=== PATIENT | male | born 1955 | race African-American/Black ===

== ENCOUNTER 2020-07-25 20:57 | Inpatient (IN) ==
[2020-07-25 21:27] LABS: Basophils % 0.1 % (0.0-0.8); Hematocrit 39.3 VOL% (42.0-52.0); Hemoglobin 13.8 GM/DL (14.0-18.0); Immature Granulocytes % 0.7 %; Immature Granulocytes Absolute 0.11 #; Lymphocytes # 0.7 10*3/uL (1.4-4.0); Lymphocytes % 3.9 % (21.2-54.2); Mean Corpuscular HGB Conc 35.1 GM/DL (32-36); Mean Corpuscular Volume 89.9 FL (87-102); Mean Platelet Volume 9.8 FL (9.6-12.0); Monocytes % 4.2 % (1.7-12.7); Neutrophils % 91.1 % (38.7-73.9); Platelet Count 240 T/CUMM (130-400); Red Blood Count 4.37 MC/CUMM (3.8-5.5); Red Cell Distribution Width 11.7 % (9.3-17.3); White Blood Count 16.7 T/CUMM (4-12)
[2020-07-25] MEDS ORDERED: DEXAMETHASONE 4 MG/1 ML VIAL IV STA (21:42)
[2020-07-25] MEDS ORDERED: AZITHROMYCIN INJ 500 MG in SODIUM CHLORIDE 0.9% 250 ML IV STA (21:42)
[2020-07-25 21:51] LABS: Band Neutrophils 1 % (0-10); Lymphocytes 5 % (20-55); Segmented Neutrophils 90 % (50-85); Total Cells Counted 100
[2020-07-25 21:52] LABS: Platelet Estimate Adequate
[2020-07-25 21:56] LABS: Albumin 2.9 G/DL (3.4-5.0); Bilirubin,Total 0.4 MG/DL (0.2-1.0); Calcium 7.8 MG/DL (8.5-10.1); Osmolality,Calculated 276.8 MOS/KG (273-304); Total Protein 6.9 G/DL (6.4-8.3)
[2020-07-25 22:00] LABS: Ferritin 1688.6 ng/ml (26-388)
[2020-07-25] MEDS ORDERED: hydrALAZINE 20 MG/1 ML VIAL IV PRN (23:13)
[2020-07-25] MEDS ORDERED: ONDANSETRON 4 MG/2 ML VIAL IV PRN (23:13)
[2020-07-25] MEDS ORDERED: DEXTROSE 50% 25 GM/50 ML VIAL IV PRN (23:13)
[2020-07-25] MEDS ORDERED: GLUCAGON 1 MG VIAL IM PRN (23:13)
[2020-07-25] MEDS ORDERED: MORPHINE 4 MG/1 ML VIAL IV PRN (23:13)
[2020-07-25] MEDS ORDERED: diphenhydrAMINE CAP 25 MG CAPSULE PO PRN (23:13)
[2020-07-25] MEDS ORDERED: guaiFENesin/DM ER 600-30 MG TABLET PO PRN (23:13)
[2020-07-25] MEDS ORDERED: MELATONIN 3 MG TABLET PO PRN (23:15)
[2020-07-26] MEDS: cefTRIAXone 1,000 MG in SYRINGE 1 EACH IV SCH (00:48)
[2020-07-26] MEDS: SODIUM CHLORIDE 0.9% 1,000 ML IV SCH ×2 (02:05→13:00)
[2020-07-26 04:02] LABS: Hematocrit 34.3 VOL% (42.0-52.0); Immature Granulocytes % 0.5 %; Immature Granulocytes Absolute 0.07 #; Lymphocytes # 0.5 10*3/uL (1.4-4.0); Lymphocytes % 3.5 % (21.2-54.2); Mean Corpuscular Volume 89.8 FL (87-102); Mean Platelet Volume 9.6 FL (9.6-12.0); Platelet Count 256 T/CUMM (130-400); Red Blood Count 3.82 MC/CUMM (3.8-5.5); Red Cell Distribution Width 11.8 % (9.3-17.3); White Blood Count 12.9 T/CUMM (4-12)
[2020-07-26 04:23] LABS: Hypochromasia Slight; Lymphocytes 5 % (20-55); Platelet Estimate Adequate; Segmented Neutrophils 91 % (50-85); Total Cells Counted 100
[2020-07-26] MEDS ORDERED: REMDESIVIR 200 MG in SODIUM CHLORIDE 0.9% 210 ML IV ONE (09:00)
[2020-07-26] MEDS: ASCORBIC ACID 500 MG TABLET PO SCH ×2 (09:24→21:35)
[2020-07-26] MEDS: CHOLECALCIFEROL 1,000 UNIT TABLET PO SCH (09:24)
[2020-07-26] MEDS: ENOXAPARIN 40 MG/0.4 ML SYRINGE SUBCUT SCH (09:24)
[2020-07-26] MEDS: AZITHROMYCIN 250 MG TABLET PO SCH (09:24)
[2020-07-26] MEDS: DEXAMETHASONE 4 MG/1 ML VIAL IV SCH (09:24)
[2020-07-26] MEDS: ZINC GLUCONATE 50 MG TABLET PO SCH (09:25)
[2020-07-26] MEDS: CETIRIZINE 10 MG TABLET PO SCH (09:25)
[2020-07-26] MEDS: FAMOTIDINE 20 MG TABLET PO SCH ×2 (09:28→21:35)
[2020-07-26] MEDS: ACETAMINOPHEN 325 MG TABLET PO PRN (13:01)
[2020-07-26] MEDS ORDERED: SODIUM CHLORIDE 0.9% 1,000 ML IV PRN (16:22)
[2020-07-27] MEDS: cefTRIAXone 1,000 MG in SYRINGE 1 EACH IV SCH (01:20)
[2020-07-27] MEDS: SODIUM CHLORIDE 0.9% 1,000 ML IV SCH (04:30)
[2020-07-27 04:44] LABS: Basophils % 0.1 % (0.0-0.8); Hematocrit 36.1 VOL% (42.0-52.0); Hemoglobin 12.4 GM/DL (14.0-18.0); Immature Granulocytes % 0.9 %; Immature Granulocytes Absolute 0.15 #; Lymphocytes # 0.9 10*3/uL (1.4-4.0); Lymphocytes % 5.6 % (21.2-54.2); Mean Corpuscular HGB Conc 34.3 GM/DL (32-36); Mean Corpuscular Volume 91.2 FL (87-102); Mean Platelet Volume 9.6 FL (9.6-12.0); Monocytes % 5.3 % (1.7-12.7); Neutrophils % 88.1 % (38.7-73.9); Platelet Count 272 T/CUMM (130-400); Red Blood Count 3.96 MC/CUMM (3.8-5.5); Red Cell Distribution Width 11.8 % (9.3-17.3); White Blood Count 16.9 T/CUMM (4-12)
[2020-07-27 05:20] LABS: Calcium 8.3 MG/DL (8.5-10.1); Osmolality,Calculated 281.5 MOS/KG (273-304)
[2020-07-27] MEDS: ENOXAPARIN 40 MG/0.4 ML SYRINGE SUBCUT SCH (10:58)
[2020-07-27] MEDS: CHOLECALCIFEROL 1,000 UNIT TABLET PO SCH (10:59)
[2020-07-27] MEDS: ASCORBIC ACID 500 MG TABLET PO SCH ×2 (10:59→20:30)
[2020-07-27] MEDS: ZINC GLUCONATE 50 MG TABLET PO SCH (10:59)
[2020-07-27] MEDS: AZITHROMYCIN 250 MG TABLET PO SCH (10:59)
[2020-07-27] MEDS: FAMOTIDINE 20 MG TABLET PO SCH ×2 (10:59→20:30)
[2020-07-27] MEDS: CETIRIZINE 10 MG TABLET PO SCH (11:00)
[2020-07-27] MEDS: DEXAMETHASONE 4 MG/1 ML VIAL IV SCH (15:49)
[2020-07-27] MEDS: REMDESIVIR 100 MG in SODIUM CHLORIDE 0.9% 100 ML IV SCH (16:01)
[2020-07-28] MEDS: cefTRIAXone 1,000 MG in SYRINGE 1 EACH IV SCH ×2 (00:30→23:30)
[2020-07-28] MEDS: SODIUM CHLORIDE 0.9% 1,000 ML IV SCH ×2 (05:45→18:17)
[2020-07-28 06:04] LABS: Basophils % 0.1 % (0.0-0.8); Hematocrit 38.4 VOL% (42.0-52.0); Hemoglobin 13.1 GM/DL (14.0-18.0); Immature Granulocytes Absolute 0.17 #; Lymphocytes # 1.3 10*3/uL (1.4-4.0); Lymphocytes % 7.7 % (21.2-54.2); Mean Corpuscular HGB Conc 34.1 GM/DL (32-36); Mean Corpuscular Volume 91.6 FL (87-102); Mean Platelet Volume 9.5 FL (9.6-12.0); Monocytes % 7.9 % (1.7-12.7); Neutrophils % 83.3 % (38.7-73.9); Platelet Count 295 T/CUMM (130-400); Red Blood Count 4.19 MC/CUMM (3.8-5.5); White Blood Count 17.2 T/CUMM (4-12)
[2020-07-28 06:18] LABS: Calcium 8.3 MG/DL (8.5-10.1); Osmolality,Calculated 274.7 MOS/KG (273-304)
[2020-07-28] MEDS: ENOXAPARIN 40 MG/0.4 ML SYRINGE SUBCUT SCH (09:28)
[2020-07-28] MEDS: FAMOTIDINE 20 MG TABLET PO SCH ×2 (09:28→20:45)
[2020-07-28] MEDS: DEXAMETHASONE 4 MG/1 ML VIAL IV SCH (09:28)
[2020-07-28] MEDS: ASCORBIC ACID 500 MG TABLET PO SCH ×2 (09:29→20:45)
[2020-07-28] MEDS: CETIRIZINE 10 MG TABLET PO SCH (09:29)
[2020-07-28] MEDS: AZITHROMYCIN 250 MG TABLET PO SCH (09:29)
[2020-07-28] MEDS: ZINC GLUCONATE 50 MG TABLET PO SCH (09:29)
[2020-07-28] MEDS: CHOLECALCIFEROL 1,000 UNIT TABLET PO SCH (09:29)
[2020-07-28] MEDS: REMDESIVIR 100 MG in SODIUM CHLORIDE 0.9% 100 ML IV SCH (09:30)
[2020-07-29 05:23] LABS: Basophils % 0.2 % (0.0-0.8); Hematocrit 38.9 VOL% (42.0-52.0); Hemoglobin 13.5 GM/DL (14.0-18.0); Immature Granulocytes % 0.8 %; Immature Granulocytes Absolute 0.15 #; Lymphocytes # 1.1 10*3/uL (1.4-4.0); Mean Corpuscular HGB Conc 34.7 GM/DL (32-36); Mean Corpuscular Volume 92.4 FL (87-102); Mean Platelet Volume 9.2 FL (9.6-12.0); Monocytes % 6.5 % (1.7-12.7); Neutrophils % 86.5 % (38.7-73.9); Platelet Count 278 T/CUMM (130-400); Red Blood Count 4.21 MC/CUMM (3.8-5.5); Red Cell Distribution Width 11.9 % (9.3-17.3); White Blood Count 18.1 T/CUMM (4-12)
[2020-07-29 05:49] LABS: Calcium 8.3 MG/DL (8.5-10.1); Osmolality,Calculated 273.7 MOS/KG (273-304)
[2020-07-29] MEDS: SODIUM CHLORIDE 0.9% 1,000 ML IV SCH (06:01)
[2020-07-29] MEDS: REMDESIVIR 100 MG in SODIUM CHLORIDE 0.9% 100 ML IV SCH (09:25)
[2020-07-29] MEDS: AZITHROMYCIN 250 MG TABLET PO SCH (09:26)
[2020-07-29] MEDS: CHOLECALCIFEROL 1,000 UNIT TABLET PO SCH (09:26)
[2020-07-29] MEDS: ASCORBIC ACID 500 MG TABLET PO SCH ×2 (09:26→21:47)
[2020-07-29] MEDS: DEXAMETHASONE 4 MG/1 ML VIAL IV SCH (09:26)
[2020-07-29] MEDS: ENOXAPARIN 40 MG/0.4 ML SYRINGE SUBCUT SCH (09:26)
[2020-07-29] MEDS: ZINC GLUCONATE 50 MG TABLET PO SCH (09:26)
[2020-07-29] MEDS: CETIRIZINE 10 MG TABLET PO SCH (09:27)
[2020-07-29] MEDS: FAMOTIDINE 20 MG TABLET PO SCH ×2 (09:27→21:47)
[2020-07-29] MEDS: ACETAMINOPHEN 325 MG TABLET PO PRN (21:47)
[2020-07-29] MEDS: cefTRIAXone 1,000 MG in SYRINGE 1 EACH IV SCH (23:10)
[2020-07-30 07:05] LABS: Basophils % 0.2 % (0.0-0.8); Eosinophils % 0.1 % (0.00-10.9); Hematocrit 38.9 VOL% (42.0-52.0); Hemoglobin 13.1 GM/DL (14.0-18.0); Immature Granulocytes % 1.1 %; Immature Granulocytes Absolute 0.21 #; Lymphocytes # 1.5 10*3/uL (1.4-4.0); Lymphocytes % 7.7 % (21.2-54.2); Mean Corpuscular HGB Conc 33.7 GM/DL (32-36); Mean Corpuscular Volume 92.2 FL (87-102); Mean Platelet Volume 9.2 FL (9.6-12.0); Monocytes % 4.4 % (1.7-12.7); Neutrophils % 86.5 % (38.7-73.9); Platelet Count 317 T/CUMM (130-400); Red Blood Count 4.22 MC/CUMM (3.8-5.5); Red Cell Distribution Width 11.9 % (9.3-17.3)
[2020-07-30 07:26] LABS: Calcium 8.2 MG/DL (8.5-10.1); Osmolality,Calculated 275.7 MOS/KG (273-304)
[2020-07-30] MEDS: SODIUM CHLORIDE 0.9% 1,000 ML IV SCH ×2 (08:05→10:37)
[2020-07-30] MEDS: DEXAMETHASONE 4 MG/1 ML VIAL IV SCH (09:22)
[2020-07-30] MEDS: FAMOTIDINE 20 MG TABLET PO SCH (09:22)
[2020-07-30] MEDS: ENOXAPARIN 40 MG/0.4 ML SYRINGE SUBCUT SCH (09:22)
[2020-07-30] MEDS: ASCORBIC ACID 500 MG TABLET PO SCH (09:22)
[2020-07-30] MEDS: CETIRIZINE 10 MG TABLET PO SCH (09:22)
[2020-07-30] MEDS: CHOLECALCIFEROL 1,000 UNIT TABLET PO SCH (09:22)
[2020-07-30] MEDS: REMDESIVIR 100 MG in SODIUM CHLORIDE 0.9% 100 ML IV SCH (09:22)
[2020-07-30] MEDS: ZINC GLUCONATE 50 MG TABLET PO SCH (09:22)
[2020-07-30 10:56] VITALS: BP 167/85
== END 2020-07-30 16:58 | disposition home or self-care (01) | DRG 177 ==
LOC: EDBD → EDUNIT# → N.ED 20:57 → N.EDINP 23:13 → N.2E 07-26 01:11
PROVIDERS: ADMIT Internal Medicine; ATTEND Internal Medicine

== ENCOUNTER 2021-11-28 05:28 | Inpatient (IN) ==
[2021-11-28] MEDS ORDERED: propofoL 200 MG/20 ML VIAL IV ONE (06:10)
[2021-11-28] MEDS ORDERED: MIDAZOLAM 2 MG/2 ML VIAL ONE ×2 (06:10→07:53)
[2021-11-28] MEDS ORDERED: LIDOCAINE 2% 5 ML VIAL ONE (06:10)
[2021-11-28] MEDS ORDERED: fentaNYL 100 MCG/2 ML VIAL ONE (06:11)
[2021-11-28] MEDS ORDERED: buprenorphine HCL 0.3 MG/ML VIAL ONE (06:11)
[2021-11-28] MEDS ORDERED: LIDOCAINE 1% 5 ML VIAL ONE (06:14)
[2021-11-28] MEDS ORDERED: DEXAMETHASONE 4 MG/1 ML VIAL ONE (06:14)
[2021-11-28] MEDS ORDERED: ROPIVACAINE 0.5% 30 ML VIAL ONE (06:15)
[2021-11-28] MEDS ORDERED: FAMOTIDINE 20 MG/2 ML VIAL IV ONE (06:43)
[2021-11-28] MEDS ORDERED: VANCOMYCIN 1,000 MG VIAL ONE (06:44)
[2021-11-28] MEDS ORDERED: ceFAZolin 1,000 MG VIAL ONE (06:44)
[2021-11-28 06:51] LABS: PT Patient Result 10.8 SECS (10.5-12.0); Partial Thromboplastin Time 28.8 SECS (23.8-32.1)
[2021-11-28] MEDS ORDERED: MAGNESIUM HYDROXIDE SUSP 30 ML UDCUP PO PRN (07:00)
[2021-11-28] MEDS ORDERED: ONDANSETRON 4 MG/2 ML VIAL IV PRN ×2 (07:00→08:57)
[2021-11-28] MEDS ORDERED: LACTULOSE 20 GM/30 ML UDCUP PO PRN (07:00)
[2021-11-28] MEDS ORDERED: VANCOMYCIN INJ 1,000 MG in SODIUM CHLORIDE 0.9% 250 ML IV ONE (07:00)
[2021-11-28] MEDS ORDERED: MORPHINE 2 MG/1 ML SYRINGE IV PRN ×2 (07:00→07:09)
[2021-11-28] MEDS ORDERED: diphenhydrAMINE CAP 25 MG CAPSULE PO PRN (07:00)
[2021-11-28] MEDS ORDERED: BISACODYL 10 MG SUPP RECTAL PRN (07:00)
[2021-11-28] MEDS ORDERED: PROMETHAZINE 25 MG/1 ML VIAL IM PRN (07:00)
[2021-11-28] MEDS ORDERED: ePHEDrine 50 MG/ML VIAL ONE (07:13)
[2021-11-28] MEDS ORDERED: BUPIVACAINE SPINAL 0.75% 2 ML AMP SPINAL ONE (07:28)
[2021-11-28] MEDS ORDERED: ONDANSETRON 4 MG/2 ML VIAL ONE (07:28)
[2021-11-28] MEDS ORDERED: TRANEXAMIC ACID 1,000 MG/10 ML VIAL ONE (07:31)
[2021-11-28] MEDS ORDERED: SODIUM CHLORIDE 0.9% 250 ML IV ONE (07:39)
[2021-11-28] MEDS ORDERED: ACETAMINOPHEN INJ 1,000 MG/100 ML VIAL IV ONE (07:42)
[2021-11-28] MEDS ORDERED: KETOROLAC 30 MG/1 ML VIAL ONE (07:46)
[2021-11-28] MEDS: LACTATED RINGERS 1,000 ML IV SCH ×2 (08:04→09:05)
[2021-11-28] MEDS ORDERED: PHENYLEPHRINE 1 MG/10 ML SYRINGE IV ONE (08:15)
[2021-11-28] MEDS ORDERED: diphenhydrAMINE 50 MG/1 ML VIAL IV PRN (08:57)
[2021-11-28] MEDS ORDERED: HYDROmorphone 1 MG/1 ML SYRINGE IV PRN (08:57)
[2021-11-28] MEDS ORDERED: MEPERIDINE 25 MG/1 ML VIAL IV PRN (08:57)
[2021-11-28] MEDS ORDERED: PROMETHAZINE INJ 25 MG in SODIUM CHLORIDE 0.9% 50 ML IV PRN (08:57)
[2021-11-28 09:01] LABS: Mucus,Urine Occasional /LPF (Occasional); RBC,Urine 2 /HPF (0-4)
[2021-11-28 09:02] LABS: Bilirubin,Urine Negative (Negative); Blood, Urine Negative (Negative); Glucose,Urine (UA) Negative (Negative); Ketones,Urine Negative (Negative); Nitrite,Urine Negative (Negative); Protein,Urine Negative (Negative); Urine Appearance Clear (Clear); Urine Color Yellow (Yellow); Urine Urobilinogen 0.2 eU/dL (<2.0)
[2021-11-28] MEDS: ceFAZolin 2,000 MG/50 ML DUPLEX IV SCH ×2 (14:31→21:18)
[2021-11-28] MEDS: POTASSIUM CHLORIDE 10 MEQ TABLET PO SCH (20:40)
[2021-11-28] MEDS: SIMVASTATIN 20 MG TABLET PO SCH (20:41)
[2021-11-28] MEDS: PANTOPRAZOLE 40 MG TABLET PO SCH (20:41)
[2021-11-28] MEDS: FONDAPARINUX 2.5 MG/0.5 ML SYRINGE SUBCUT SCH (20:42)
[2021-11-28] MEDS: DOCUSATE SODIUM 100 MG CAPSULE PO SCH (20:42)
[2021-11-28] MEDS: amLODIPine 10 MG TABLET PO SCH (20:42)
[2021-11-29] MEDS: LACTATED RINGERS 1,000 ML IV SCH (03:24)
[2021-11-29 05:11] LABS: Basophils % 0.2 % (0.0-0.8); Eosinophils % 0.1 % (0.00-10.9); Hematocrit 31.5 VOL% (42.0-52.0); Hemoglobin 10.4 GM/DL (14.0-18.0); Immature Granulocytes % 0.3 %; Immature Granulocytes Absolute 0.04 #; Lymphocytes # 1.8 10*3/uL (1.4-4.0); Mean Corpuscular Volume 96.3 FL (87-102); Monocytes # 1.2 10*3/uL (0.11-0.8); Monocytes % 9.1 % (1.7-12.7); Neutrophils % 76.3 % (38.7-73.9); Platelet Count 206 T/CUMM (130-400); Red Blood Count 3.27 MC/CUMM (3.8-5.5); Red Cell Distribution Width 12.1 % (9.3-17.3); White Blood Count 12.6 T/CUMM (4-12)
[2021-11-29 05:34] LABS: Osmolality,Calculated 279.5 MOS/KG (273-304); Potassium 3.6 MMOL/L (3.5-5.1)
[2021-11-29] MEDS ORDERED: ACETAMINOPHEN 325 MG TABLET PO PRN (07:01)
[2021-11-29] MEDS: MELOXICAM 7.5 MG TABLET PO SCH (08:25)
[2021-11-29] MEDS: DOCUSATE SODIUM 100 MG CAPSULE PO SCH ×2 (08:25→20:32)
[2021-11-29] MEDS: FONDAPARINUX 2.5 MG/0.5 ML SYRINGE SUBCUT SCH (20:32)
[2021-11-29] MEDS: TEMAZEPAM 7.5 MG CAPSULE PO PRN ×2 (20:32→22:34)
[2021-11-29] MEDS: POTASSIUM CHLORIDE 10 MEQ TABLET PO SCH (20:32)
[2021-11-29] MEDS: SIMVASTATIN 20 MG TABLET PO SCH (20:32)
[2021-11-29] MEDS: PANTOPRAZOLE 40 MG TABLET PO SCH (20:33)
[2021-11-29] MEDS: amLODIPine 10 MG TABLET PO SCH (20:33)
[2021-11-30] MEDS: MELOXICAM 7.5 MG TABLET PO SCH (08:27)
[2021-11-30] MEDS: DOCUSATE SODIUM 100 MG CAPSULE PO SCH (08:28)
[2021-11-30] MEDS: LACTATED RINGERS 1,000 ML IV SCH (11:10)
[2021-11-30 12:00] VITALS: BP 137/71
== END 2021-11-30 14:40 | DRG 470 ==
LOC: N.SDSINP 05:28
PROVIDERS: ADMIT Orthopaedic Surgery; ATTEND Orthopaedic Surgery